=== PATIENT | male | born 2000 | race Two or more races ===

== ENCOUNTER 2021-04-04 09:09 | Outpatient (CLI) | payer OTHER ==
--- NOTE | 2021-04-04 10:58 | MRI Report ---
PROCEDURE: Knee RT W/O INDICATIONS: PAIN IN RIGHT KNEE TECHNIQUE: Noncontrast sagittal PD fast spin echo and T2 fast spin echo with fat saturation, sagittal 3-D gradie nt sequence with fat saturation; coronal T1 spin echo and PD fast spin echo with fat saturation, and axial PD fast spin echo with fat saturation through the knee. COMPARISON: None. Findings: Medial meniscus: No surface communication/tear. Lateral meniscus: No surface communication/tear. LIGAMENTS/TENDONS: Patellar tendon: Intact. Distal quadriceps tendon: Intact. Hoffa's fat pad: No evidence of fibrosis or mass. PCL: Intact. ACL: Intrasubstance signal, compatible partial tear. Lateral collateral ligament complex: No significant abnormality. Posterolateral corner: No significant abnormality. Medial collateral ligament: No significant abnormality.. MARROW: Patchy T2 hyperintensity/T1 hyperintense signal in the lateral femoral condyle and tibial pl ateau, compatible with contusion. CARTILAGE: No significant chondromalacia, cartilaginous laceration or contusion. Muscles: No significant edema or atrophy. Joint effusion/Jose's cyst: Small joint effusion. No significant Jose's cyst. Subcutaneous soft tissues: No significant edema. IMPRESSION: 1. Partial ACL tear. 2. Contusion in the lateral femoral condyle and tibial plateau. 3. Small joint effusion. Reviewed by: Booker Alcocer MD on 04/04/2021 10:57 AM PDT Approved by: Booker Alcocer MD on 04/04/2021 10:57 AM PDT Station ID: [id number]
== END 2021-04-04 09:10 | disposition home or self-care (01) ==
LOC: DI 09:09
DX: S83.511A Sprain of anterior cruciate ligament of right knee, initial encounter (principal); S80.01XA Contusion of right knee, initial encounter; M25.461 Effusion, right knee

== ENCOUNTER 2022-03-20 18:44 | Emergency (ER) | payer OTHER ==
[2022-03-20 18:53] VITALS: BP 149/71
[2022-03-20] MEDS ORDERED: cephALEXin 250 MG CAPSULE PO STA (18:58)
--- NOTE | 2022-03-20 19:01 | ED Physician Documentation ---
PD HPI WOUND RECHECK - Stated complaint Stated Complaint: HOLE ON STOMACH - Chief complaint Chief Complaint: Wound - Histroy obtained from History obtained from: Patient - Additional information Additional information: 22-year-old gentleman presents for the evaluation of a "hole in his abdomen," that he may have noticed yesterday but definitely noticed today. There was wound with some drainage on the right lower quadrant of the abdominal wall. No fevers or chills. No specific injury or recollected trauma. Review of Systems Constitutional: reports: Reviewed and negative Throat: reports: Reviewed and negative Cardiac: reports: Reviewed and negative Respiratory: reports: Reviewed and negative PD PAST MEDICAL HISTORY - Present Medications Home Medications: Ambulatory Orders Medication Instructions Recorded Confirmed cephALEXin [Keflex] 500 mg PO Q6H #28 cap 03/20/22 - Allergies Allergies/Adverse Reactions: Allergies Allergy/AdvReac Type Severity Reaction Status Date / Time No Known Drug Allergies Allergy Verified 03/20/22 18:52 PD ED PE NORMAL - Vitals Vital signs reviewed: Yes - General General: Alert and oriented X 3, No acute distress - Abdomen Abdomen: Normal bowel sounds, Soft, Other (He has a very small what looks like a completely drained abscess to the right lower quadrant abdominal wall. Culture was taken during exam and there was just a bit of purulence. It does not track deep.) - Neuro Neuro: Alert and oriented X 3, Normal speech Results - Vitals Vitals: Vital Signs - 24 hr 03/20/22 18:50 Temperature 36.0 C L Heart Rate 90 Respiratory 16 Rate Blood Pressure 149/71 H O2 Saturation 96 Oxygen O2 Source Room air Departure - Departure Disposition: 01 Home, Self Care Clinical Impression: Abscess Condition: Good Record reviewed to determine appropriate education?: Yes Instructions: ED Staph Infec Abx Tx Only Prescriptions: cephALEXin [Keflex] 500 mg PO Q6H #28 cap Comments: You are seen today for what looks like a ruptured cyst or abscess to the right lower quadrant abdominal wall. This is quite small and should heal up well, we are performing a wound culture and if a resistant organism is identified we will call you. 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 You can wash it with soap and water and just keep it covered with a Band-Aid.
== END 2022-03-20 19:07 | disposition home or self-care (01) ==
LOC: ED 18:44
DX: L02.211 Cutaneous abscess of abdominal wall (principal)
CPT/HCPCS: 87070; 87205; 99282; 99283; A9270

== ENCOUNTER 2023-05-30 14:38 | Outpatient (CLI) | payer OTHER | END 2023-05-30 14:39 | disposition home or self-care (01) | LOC: LAB 14:38 | PROVIDERS: ATTEND Obstetrics & Gynecology | DX: Z14.1 Cystic fibrosis carrier (principal) | CPT/HCPCS: 36415; 81220; 81599 ==